=== PATIENT | male | born 1960 | race Caucasian/White ===

== ENCOUNTER → 2016-10-11 | Outpatient (CLI) | payer OTHER ==
[~2016-10-11] MED LIST: ATV/1 PO; ESOM20CA PO; FLM4 PO; FLUO20CA35 PO; FLUO40CA8 PO; FLUT1INH7 INH; IPRA1AER2 INH; LPT/40 PO; LPT40 PO; MULTCHW PO; QUET-205 PO; QUET1TAB10 PO; QUET1TAB34 PO; TYLOTC500 PO; tylenol
--- NOTE | 2016-10-11 15:46 | DIAGNOSTIC IMAGING REPORT ---
CERVICAL SPINE 2 OR 3 VIEWS CLINICAL HISTORY: CERVICALGIA COMPARISON STUDY: AP, lateral, swimmer's, and odontoid views of the cervical spine were obtained. The cervical spine is visualized from C1 through the T1 levels. There is reversal of the normal lordotic curvature. There is 2 mm of anterolisthesis of C4 on C5. Mild disc space narrowing at C4-C5 and C6-C7. Mild to moderate disc space narrowing at C5-C6 with associated endplate osteophytes. No fractures. Prevertebral soft tissues and the C1-C2 interval are intact. Mild left greater than right facet osteoarthritis within the mid to lower cervical spine. FINDINGS: IMPRESSION: 1. No fractures within the cervical spine. 2. Reversal of the normal lordotic curvature. 3. There is 2 mm of anterolisthesis of C4 on C5. This is likely due to long-standing degenerative change. 4. Mild/moderate degenerative disc disease within the mid to lower cervical spine as described above. Electronically signed by: Juan Carlos Traylor M.D. 10/11/2016 3:44 PM Dictated Date/Time: 10/11/2016 3:41 PM
[2016-10-11 17:34] LABS: URINE APPEARANCE CLEAR (CLEAR); URINE BILIRUBIN NEG (NEG); URINE COLOR YELLOW; URINE EPITHELIAL CELL AUTO 0-5 /lpf (0-5); URINE NITRITE NEG (NEG); URINE SPECIFIC GRAVITY 1.001 (1.000-1.030); UROBILINOGEN NEG (NEG); ZZUR CULT IF INDIC CLEAN CATCH NO
[2016-10-11 17:42] LABS: MANUAL MICROSCOPIC REQUIRED? NO; REVIEW REQ? NO
== END | disposition home or self-care (01) ==
LOC: C.LABPVFM 15:01
PROVIDERS: ATTEND Family Medicine
DX: M43.12 Spondylolisthesis, cervical region (principal); C61 Malignant neoplasm of prostate; R30.0 Dysuria; K13.0 Diseases of lips

== ENCOUNTER → 2016-12-21 | Outpatient (CLI) | payer OTHER ==
[2016-12-21 12:43] LABS: BASO % 0.5 %; BASO ABS # 0.03 K/uL (0-0.2); COMPLETE YES; EOS % 2.6 %; HEMATOCRIT 39.2 % (42-52); IG% 0.6 %; LYMPH % 17.3 %; LYMPH ABS # 1.11 K/uL (1.2-3.4); MEAN CELL VOLUME 86.5 fL (80-100); MEAN CORPUSCULAR HEMOGLOBIN 30.7 pg (25-34); MEAN CORPUSCULAR HGB CONC 35.5 g/dl (32-36); MEAN PLATELET VOLUME 9.5 fL (7.4-10.4); MONO % 8.9 %; NEUT % 70.1 %; PLATELET COUNT 188 K/uL (130-400); RED BLOOD COUNT 4.53 M/uL (4.7-6.1); WHITE BLOOD COUNT 6.42 K/uL (4.8-10.8)
[2016-12-21 12:53] LABS: ALT/SGPT 42 U/L (12-78); BLOOD UREA NITROGEN 12 mg/dl (7-18); BUN/CREATININE RATIO 16.3 (10-20); CALCIUM 8.7 mg/dl (8.5-10.1); CARBON DIOXIDE 28 mmol/L (21-32); CHLORIDE 101 mmol/L (98-107); CHOLESTEROL 151 mg/dl (0-200); CREATININE 0.73 mg/dl (0.60-1.40); GLUCOSE 94 mg/dl (70-99); POTASSIUM 4.2 mmol/L (3.5-5.1); SODIUM 137 mmol/L (136-145); TRIGLYCERIDES 183 mg/dl (0-150); VERY LOW DENSITY LIPOPROT CALC 37 mg/dl
[2016-12-21 12:56] LABS: ALB/GLOB RATIO 1.3 (0.9-2); ALKALINE PHOSPHATASE 99 U/L (45-117); AST/SGOT 26 U/L (15-37); CHOLESTEROL/HDL RATIO 3.9; HDL CHOLESTEROL 39 mg/dl; LDL CHOLESTEROL CALCULATED 75 mg/dl
== END | disposition home or self-care (01) ==
LOC: C.LABPVFM 10:36
PROVIDERS: ATTEND Psychiatry & Neurology Psychiatry
DX: F20.9 Schizophrenia, unspecified (principal)

== ENCOUNTER → 2016-12-27 | Outpatient (CLI) | payer OTHER ==
[2016-12-27 19:10] LABS: LYME DISEASE AB IGM NEG (NEG)
[2016-12-27 19:11] LABS: LYME DISEASE AB IGG NEG (NEG)
== END | disposition home or self-care (01) ==
LOC: C.LABPVFM 15:55
PROVIDERS: ATTEND Family Medicine
DX: M79.1 Myalgia (principal)

== ENCOUNTER 2017-02-24 22:02 | Emergency (ER) | payer OTHER ==
[~2017-02-24] VITALS: Ht 185.4 cm; Wt 101.5 kg
[~2017-02-24 22:02] MED LIST changes: -LPT/40 PO; -QUET1TAB10 PO; -TYLOTC500 PO
[2017-02-24 22:04] VITALS: TEMP 36.7; Ht 185.4 cm; Wt 101.5 kg
[2017-02-24] MEDS ORDERED: LORAZEPAM 2 MG/ML 1 ML VIAL IV STA (22:24)
[2017-02-24 22:28] VITALS: O2SAT 95
--- NOTE | 2017-02-24 22:28 | EMERGENCY ROOM VISIT NOTE ---
History Report prepared by Cherise: Nixon Rees Under the Supervision of: Dr. Justyn Cortes D.O. First contact with patient: 22:12 Chief Complaint: CHEST PAIN Stated Complaint: SEIZURE,POSSIBLE STROKE History of Present Illness The patient is a 56 year old male who presents to the Emergency Room with complaints of chest pain that occurred 2 and a half hours ago. His chest pain has resolved at this time. Per the family, at this time the patient began experiencing chest pain. He clutched his chest with his fist and started to shake. His skin turned bright red and began to breath heavily. His eyes then rolled into the back of his head and foamed at the mouth mildly. This lasted for about 10 minutes. When this resolved, he was mildly confused, but regained normal cognition. The family called the Ambulance when this began. After the symptoms resolved, he did not want to come to the hospital, but was brought here anyway. He is currently very anxious. He ran out of his Ativan prescription and cannot get it filled until Sunday. He is also thirsty and has a mild headache. Source of History: patient Onset: 2 and a half hours ago Position: chest Symptom Intensity: moderate Quality: sharp Timing: resolved Associated Symptoms: + headache, No LOC Note: He experienced seizure-like symptoms that have resolved. Review of Systems See HPI for pertinent positives and negatives. A total of ten systems were reviewed and were otherwise negative. Past Medical & Surgical Medical Problems: (1) Prostate cancer Family History Omitted secondary to age. Social History Smoking Status: Current Every Day Smoker Alcohol Use: none Housing Status: lives with family Current/Historical Medications Scheduled Acetaminophen (Tylenol), 1,000 MG PO PRN UD Atorvastatin (Lipitor), 40 MG PO QPM Esomeprazole Magnesium (Nexium), 20 MG PO DAILY Fluoxetine (Prozac), 20 MG PO DAILY Fluoxetine (Prozac), 40 MG PO BID Fluticasone Furoate-Vilanterol (Breo Ellipta 200-25 Mcg/INH), 1 PUFFS INH QAM Ipratropium-Albuterol (Combivent Respimat), 1 PUFFS INH QID Lorazepam (Ativan), 1 MG PO TID Multiple Vitamins W/ Minerals (Centrum Silver), PO DAILY Quetiapine Fumarate (Seroquel), 200 MG PO BID Quetiapine Fumarate (Seroquel), 500 MG PO HS Scheduled PRN Lorazepam (Ativan), 1 MG PO TID PRN for Anxiety Allergies Coded Allergies: No Known Allergies (Verified , 06/17/15) Physical Exam Vital Signs Date Time Temp Pulse Resp B/P (MAP) Pulse Ox O2 Delivery O2 Flow Rate FiO2 02/24/17 23:28 75 20 147/71 98 02/24/17 22:32 79 02/24/17 22:28 80 20 140/85 95 Room Air 02/24/17 22:28 95 Room Air 02/24/17 22:28 95 Room Air 02/24/17 22:15 95 Room Air 02/24/17 22:04 36.7 86 20 134/77 94 Room Air Physical Exam GENERAL: Awake, alert, well-appearing, in no distress HENT: Normocephalic, atraumatic. Oropharynx unremarkable. EYES: Normal conjunctiva. Sclera non-icteric. NECK: Supple. No nuchal rigidity. FROM. No JVD. RESPIRATORY: Clear to auscultation. CARDIAC: Regular rate, normal rhythm. Extremities warm and well perfused. Pulses equal. ABDOMEN: Soft, non-distended. No tenderness to palpation. No rebound or guarding. No masses. RECTAL: Deferred. MUSCULOSKELETAL: Chest examination reveals no tenderness. The back is symmetrical on inspection without obvious abnormality. There is no CVA tenderness to palpation. No joint edema. LOWER EXTREMITIES: Calves are equal size bilaterally and non-tender. No edema. No discoloration. NEURO: Normal sensorium. No sensory or motor deficits noted. SKIN: No rash or jaundice noted. PSYCH: Anxious appearing. Medical Decision & Procedures ER Provider Diagnostic Interpretation: X ray results as stated below per my interpretation and radiologist interpretation. Other radiology results as stated below per my review and radiologist interpretation CT OF THE HEAD WITHOUT CONTRAST CLINICAL HISTORY: Headache. Unresponsive episode. Seizure. Possible stroke. COMPARISON STUDY: MRI of the brain July 04, 2012. CT DOSE: 623.48 mGy.cm TECHNIQUE: Helical axial images of the head were obtained without IV contrast. Automated exposure control was utilized for the study. FINDINGS: No acute intracranial hemorrhage, midline shift or mass effect is present. Ventricular system is normal. Basilar cisterns are patent. There are no extra-axial collections. Hernandez-white differentiation is maintained. There are no findings to suggest acute dural sinus thrombosis or acute territorial infarct. There is minimal mucosal thickening of the sinuses. Mastoid air cells are clear. There is no calvarial fracture. IMPRESSION: No acute intracranial findings. Electronically signed by: Dev Mckeon M.D. 02/24/2017 10:58 PM Dictated Date/Time: 02/24/2017 10:55 PM CHEST ONE VIEW PORTABLE CLINICAL HISTORY: Chest pain. COMPARISON STUDY: Chest CT October 13, 2015. FINDINGS: There is no pneumothorax or pleural effusion. Linear left lower lung opacity favors atelectasis. There is no evidence of pulmonary edema. There is no consolidation to suggest pneumonia. Cardiac size is within normal limits. IMPRESSION: No acute cardiopulmonary findings. Electronically signed by: Dev Mckeon M.D. 02/24/2017 10:54 PM Dictated Date/Time: 02/24/2017 10:53 PM Laboratory Results 02/24/17 22:25 Red Blood Count 4.20, Mean Corpuscular Volume 85.7, Mean Corpuscular Hemoglobin 30.7, Mean Corpuscular Hemoglobin Concent 35.8, Mean Platelet Volume 9.0, Neutrophils (%) (Auto) 79.9, Lymphocytes (%) (Auto) 9.9, Monocytes (%) (Auto) 7.2, Eosinophils (%) (Auto) 1.9, Basophils (%) (Auto) 0.2, Neutrophils # (Auto) 7.24, Lymphocytes # (Auto) 0.90, Monocytes # (Auto) 0.65, Eosinophils # (Auto) 0.17, Basophils # (Auto) 0.02 02/24/17 22:25 Test 02/24/17 22:25 White Blood Count 9.06 K/uL (4.8-10.8) Red Blood Count 4.20 M/uL (4.7-6.1) Hemoglobin 12.9 g/dL (14.0-18.0) Hematocrit 36.0 % (42-52) Mean Corpuscular Volume 85.7 fL (80-100) Mean Corpuscular Hemoglobin 30.7 pg (25-34) Mean Corpuscular Hemoglobin Concent 35.8 g/dl (32-36) Platelet Count 188 K/uL (130-400) Mean Platelet Volume 9.0 fL (7.4-10.4) Neutrophils (%) (Auto) 79.9 % Lymphocytes (%) (Auto) 9.9 % Monocytes (%) (Auto) 7.2 % Eosinophils (%) (Auto) 1.9 % Basophils (%) (Auto) 0.2 % Neutrophils # (Auto) 7.24 K/uL (1.4-6.5) Lymphocytes # (Auto) 0.90 K/uL (1.2-3.4) Monocytes # (Auto) 0.65 K/uL (0.11-0.59) Eosinophils # (Auto) 0.17 K/uL (0-0.5) Basophils # (Auto) 0.02 K/uL (0-0.2) RDW Standard Deviation 43.4 fL (36.4-46.3) RDW Coefficient of Variation 13.8 % (11.5-14.5) Immature Granulocyte % (Auto) 0.9 % Immature Granulocyte # (Auto) 0.08 K/uL (0.00-0.02) Anion Gap 9.0 mmol/L (3-11) Est Creatinine Clear Calc Drug Dose 108.6 ml/min Estimated GFR () 103.9 Estimated GFR (Non- 89.6 BUN/Creatinine Ratio 9.7 (10-20) Calcium Level 8.0 mg/dl (8.5-10.1) Total Bilirubin 0.5 mg/dl (0.2-1) Direct Bilirubin 0.1 mg/dl (0-0.2) Aspartate Amino Transf (AST/SGOT) 24 U/L (15-37) Alanine Aminotransferase (ALT/SGPT) 37 U/L (12-78) Alkaline Phosphatase 88 U/L (45-117) Total Protein 6.7 gm/dl (6.4-8.2) Albumin 3.5 gm/dl (3.4-5.0) Laboratory results reviewed by me Medications Administered Medications (Trade) Dose Ordered Sig/Natalie Route Start Time Stop Time Status Last Admin Dose Admin Lorazepam (Ativan Inj) 1 mg NOW STAT IV 02/24/17 22:24 02/24/17 22:26 DC 02/24/17 22:32 1 MG Diphtheria/ Pertussis/Tetanus Vacc (Adacel Inj) 0.5 ml ONCE ONCE IM. 02/24/17 23:45 02/24/17 23:46 DC 02/25/17 00:14 0.5 ML ECG Indication: chest pain Rate (beats per minute): 82 Rhythm: normal sinus Findings: other (Intraventricular conduction delay, normal axis) ED Course 2211: The patient was evaluated in room A11. A complete history and physical exam was performed. 4: Ordered Lorazepam 1 mg IV 2345: Ordered Adacel Inj 0.5 ml IM 2350: I reevaluated the patient. Discussed results and discharge instructions: He verbalized understanding and agreement. The patient is ready for discharge. Medical Decision Differential diagnoses include but are not limited to; benzodiazepine withdrawal seizure, dehydration, electrolyte abnormality, acute coronary syndrome, and TIA. Medication Reconciliation: I attest that I have personally reviewed the patient' s current medication list. Blood pressure screening: Patient was found to have normal blood pressure on screening and does not require follow-up. Patient I suspect had a benzodiazepine withdrawal seizure. Do not suspect the patient had anything related to his heart is for his acute coronary syndrome. Repeat examination is nonfocal neurologically and 2339. I discussed evaluation with the patient patient's family at bedside also sustained a wound when he was outside working today to his right middle finger was cleaned by nursing and he received a tetanus. I will place the patient on Ativan he does have follow-up on Sunday he was told to continue his Ativan arouse he would continue to possibly a benzodiazepine withdrawal seizures. Impression Primary Impression: Benzodiazepine withdrawal Additional Impression: Atypical chest pain Scribe Attestation The scribe's documentation has been prepared under my direction and personally reviewed by me in its entirety. I confirm that the note above accurately reflects all work, treatment, procedures, and medical decision making performed by me. Departure Information Dispostion Home / Self-Care Prescriptions Lorazepam (ATIVAN) 1 Mg Tab 1 MG PO TID Y for Anxiety, #10 TAB Prov: Justyn Cortes, DO 02/25/17 Referrals Mayo Howell M.D. (PCP) Forms HOME CARE DOCUMENTATION FORM, IMPORTANT VISIT INFORMATION Patient Instructions ED Withdrawal Benzodiazepine, My [facility] Problem Qualifiers
[2017-02-24 22:35] LABS: BASO % 0.2 %; BASO ABS # 0.02 K/uL (0-0.2); COMPLETE YES; EOS % 1.9 %; IG% 0.9 %; LYMPH % 9.9 %; MEAN CELL VOLUME 85.7 fL (80-100); MEAN CORPUSCULAR HEMOGLOBIN 30.7 pg (25-34); MEAN CORPUSCULAR HGB CONC 35.8 g/dl (32-36); MONO % 7.2 %; NEUT % 79.9 %; PLATELET COUNT 188 K/uL (130-400); WHITE BLOOD COUNT 9.06 K/uL (4.8-10.8)
[2017-02-24 22:53] LABS: BUN/CREATININE RATIO 9.7 (10-20); CREATININE 0.94 mg/dl (0.60-1.40); POTASSIUM 3.8 mmol/L (3.5-5.1)
--- NOTE | 2017-02-24 22:55 | DIAGNOSTIC IMAGING REPORT ---
CHEST ONE VIEW PORTABLE CLINICAL HISTORY: Chest pain. COMPARISON STUDY: Chest CT October 13, 2015. FINDINGS: There is no pneumothorax or pleural effusion. Linear left lower lung opacity favors atelectasis. There is no evidence of pulmonary edema. There is no consolidation to suggest pneumonia. Cardiac size is within normal limits. IMPRESSION: No acute cardiopulmonary findings. Electronically signed by: Dev Mckeon M.D. 02/24/2017 10:54 PM Dictated Date/Time: 02/24/2017 10:53 PM
--- NOTE | 2017-02-24 23:00 | DIAGNOSTIC IMAGING REPORT ---
CT OF THE HEAD WITHOUT CONTRAST CLINICAL HISTORY: Headache. Unresponsive episode. Seizure. Possible stroke. COMPARISON STUDY: MRI of the brain July 04, 2012. CT DOSE: 623.48 mGy.cm TECHNIQUE: Helical axial images of the head were obtained without IV contrast. Automated exposure control was utilized for the study. FINDINGS: No acute intracranial hemorrhage, midline shift or mass effect is present. Ventricular system is normal. Basilar cisterns are patent. There are no extra-axial collections. Hernandez-white differentiation is maintained. There are no findings to suggest acute dural sinus thrombosis or acute territorial infarct. There is minimal mucosal thickening of the sinuses. Mastoid air cells are clear. There is no calvarial fracture. IMPRESSION: No acute intracranial findings. Electronically signed by: Dev Mckeon M.D. 02/24/2017 10:58 PM Dictated Date/Time: 02/24/2017 10:55 PM
[2017-02-24] MEDS ORDERED: QUET1TAB10 PO (23:04)
[2017-02-24] MEDS ORDERED: LPT/40 PO (23:04)
[2017-02-24] MEDS ORDERED: TYLOTC500 PO (23:05)
[2017-02-24] MEDS ORDERED: DIPHTHERIA/TETANUS/PERTUSSIS 0.5 ML SYR/VIAL IM. ONE (23:45)
[2017-02-25] MEDS ORDERED: ATV/1 PO (00:02)
[2017-02-25 00:21] VITALS: BP 141/94; PULSE 62; O2SAT 98
== END 2017-02-25 00:25 | disposition home or self-care (01) ==
LOC: C.EDB 22:02 → C.EDA 02-25 00:25
DX: F13.239 Sedative, hypnotic or anxiolytic dependence with withdrawal, unspecified (principal); R07.89 Other chest pain; Z23 Encounter for immunization; F17.200 Nicotine dependence, unspecified, uncomplicated; Z79.899 Other long term (current) drug therapy; Z85.46 Personal history of malignant neoplasm of prostate

== ENCOUNTER → 2017-04-28 | Outpatient (CLI) | payer OTHER ==
[~2017-04-28] MED LIST changes: -FLM4 PO; +LPT/40 PO; -LPT40 PO; -QUET-205 PO; +QUET1TAB10 PO; +TYLOTC500 PO; -tylenol
[2017-04-28 13:11] LABS: HEMATOCRIT 41.1 % (42-52); MEAN CELL VOLUME 87.3 fL (80-100); MEAN CORPUSCULAR HGB CONC 35.5 g/dl (32-36); MEAN PLATELET VOLUME 9.6 fL (7.4-10.4); PLATELET COUNT 201 K/uL (130-400); RED BLOOD COUNT 4.71 M/uL (4.7-6.1); WHITE BLOOD COUNT 9.12 K/uL (4.8-10.8)
[2017-04-28 13:31] LABS: ALT/SGPT 41 U/L (12-78); BLOOD UREA NITROGEN 9 mg/dl (7-18); BUN/CREATININE RATIO 11.8 (10-20); CALCIUM 8.8 mg/dl (8.5-10.1); CARBON DIOXIDE 26 mmol/L (21-32); CHLORIDE 100 mmol/L (98-107); CREATININE 0.76 mg/dl (0.60-1.40); GLUCOSE 95 mg/dl (70-99); SODIUM 133 mmol/L (136-145)
[2017-04-28 13:35] LABS: ALB/GLOB RATIO 1.1 (0.9-2); ALKALINE PHOSPHATASE 99 U/L (45-117); AST/SGOT 27 U/L (15-37); PROSTATE SPECIFIC ANTIGEN 0.209 ng/ml (0.000-4.000)
== END | disposition home or self-care (01) ==
LOC: C.LABPVFM 08:58
PROVIDERS: ATTEND Family Medicine
DX: R10.9 Unspecified abdominal pain (principal); N20.0 Calculus of kidney; C61 Malignant neoplasm of prostate

== ENCOUNTER → 2017-05-01 | Outpatient (CLI) | payer OTHER ==
[2017-05-01 17:40] LABS: URINE APPEARANCE CLEAR (CLEAR); URINE BILIRUBIN NEG (NEG); URINE COLOR YELLOW; URINE EPITHELIAL CELL AUTO 0-5 /lpf (0-5); URINE NITRITE NEG (NEG); URINE PH 7.5 (4.5-7.5); URINE SPECIFIC GRAVITY 1.005 (1.000-1.030); UROBILINOGEN NEG (NEG); ZZUR CULT IF INDIC CLEAN CATCH NO
[2017-05-01 17:51] LABS: MANUAL MICROSCOPIC REQUIRED? NO; REVIEW REQ? NO
== END | disposition home or self-care (01) ==
LOC: C.LABPVFM 10:13
PROVIDERS: ATTEND Family Medicine
DX: N20.0 Calculus of kidney (principal)

== ENCOUNTER → 2017-05-10 | Outpatient (CLI) | payer OTHER ==
--- NOTE | 2017-05-10 08:51 | DIAGNOSTIC IMAGING REPORT ---
ABDOMEN COMPLETE (US) CLINICAL HISTORY: Abdominal pain. COMPARISON STUDY: CT of the abdomen and pelvis September 23, 2015 and abdominal ultrasound July 11, 2016. FINDINGS: Liver is sonographically normal. There is no biliary ductal dilatation. The common bile duct measures 3 mm in caliber. The gallbladder is normal. There are no gallstones. The pancreas is obscured by overlying bowel gas. The size of the spleen is normal. The size of the kidneys is normal. There is no hydronephrosis. The lower pole of the left kidney is slightly obscured. A 3.1 cm infrarenal abdominal aortic aneurysm is similar to prior exam of July 11, 2016. Visualized portions of the IVC are patent. IMPRESSION: 1. No significant change in a 3.1 cm infrarenal abdominal aortic aneurysm. 2. No gallstones or biliary ductal dilatation. 3. Pancreas obscured by overlying bowel gas. Electronically signed by: Dev Mckeon M.D. 05/10/2017 8:50 AM Dictated Date/Time: 05/10/2017 8:48 AM
== END | disposition home or self-care (01) ==
LOC: C.ULTR 08:05
PROVIDERS: ATTEND Family Medicine
DX: I71.4 Abdominal aortic aneurysm, without rupture (principal); R10.9 Unspecified abdominal pain

== ENCOUNTER → 2017-09-03 | Outpatient (CLI) | payer OTHER ==
--- NOTE | 2017-09-03 14:39 | DIAGNOSTIC IMAGING REPORT ---
CHEST 2 VIEWS ROUTINE HISTORY: Altered mental status. COPD COMPARISON: Chest 02/24/2017. FINDINGS: The lungs remain hyperexpanded with apical predominant emphysematous changes. No pleural fusions. No pneumothorax. The heart is normal in size. Left basilar linear densities favor scarring or atelectasis. This is similar to the prior study. No new focal lung consolidations to suggest pneumonia. No evidence for pulmonary edema. IMPRESSION: No significant change compared to the prior study. No acute process. Electronically signed by: Juan Carlos Traylor M.D. 09/03/2017 2:38 PM Dictated Date/Time: 09/03/2017 2:34 PM
[2017-09-03 17:54] LABS: BASO % 0.7 %; BASO ABS # 0.04 K/uL (0-0.2); COMPLETE YES; EOS % 3.4 %; HEMATOCRIT 38.8 % (42-52); IG% 1.1 %; LYMPH % 20.5 %; LYMPH ABS # 1.26 K/uL (1.2-3.4); MEAN CELL VOLUME 87.6 fL (80-100); MEAN CORPUSCULAR HEMOGLOBIN 31.2 pg (25-34); MEAN CORPUSCULAR HGB CONC 35.6 g/dl (32-36); MEAN PLATELET VOLUME 9.9 fL (7.4-10.4); MONO % 8.3 %; PLATELET COUNT 190 K/uL (130-400); RED BLOOD COUNT 4.43 M/uL (4.7-6.1); WHITE BLOOD COUNT 6.15 K/uL (4.8-10.8)
[2017-09-03 18:58] LABS: ALT/SGPT 45 U/L (12-78); AST/SGOT 32 U/L (15-37); BLOOD UREA NITROGEN 9 mg/dl (7-18); BUN/CREATININE RATIO 11.9 (10-20); CALCIUM 8.5 mg/dl (8.5-10.1); CARBON DIOXIDE 26 mmol/L (21-32); CHLORIDE 99 mmol/L (98-107); CHOLESTEROL 165 mg/dl (0-200); CREATININE 0.75 mg/dl (0.60-1.40); GLUCOSE 86 mg/dl (70-99); SODIUM 133 mmol/L (136-145); TRIGLYCERIDES 188 mg/dl (0-150); VERY LOW DENSITY LIPOPROT CALC 38 mg/dl
[2017-09-03 19:09] LABS: ALB/GLOB RATIO 1.3 (0.9-2); ALKALINE PHOSPHATASE 102 U/L (45-117); CHOLESTEROL/HDL RATIO 4.6; HDL CHOLESTEROL 36 mg/dl; LDL CHOLESTEROL CALCULATED 91 mg/dl; PROSTATE SPECIFIC ANTIGEN 0.212 ng/ml (0.000-4.000)
[2017-09-04 07:34] LABS: ESTIMATED AVERAGE GLUCOSE 111 mg/dl; HA1C FLAG Normal (Normal)
== END | disposition home or self-care (01) ==
LOC: C.LABPVFM 14:11
PROVIDERS: ATTEND Family Medicine
DX: J44.9 Chronic obstructive pulmonary disease, unspecified (principal); E78.00 Pure hypercholesterolemia, unspecified; I10 Essential (primary) hypertension; R07.9 Chest pain, unspecified